=== PATIENT | male | born 1980 | race African-American/Black ===

== ENCOUNTER → 2023-06-11 | Outpatient (CLI) | payer OTHER | LOC: M RAD 11:36 | PROVIDERS: ATTEND Physician Assistant | DX: R06.00 Dyspnea, unspecified (principal) ==

== ENCOUNTER → 2025-01-29 | Outpatient (CLI) | payer OTHER | LOC: M RAD 14:17 | PROVIDERS: ATTEND Nurse Practitioner Family | DX: R94.6 Abnormal results of thyroid function studies (principal) ==